=== PATIENT | female | born 2000 | race Caucasian/White ===

== ENCOUNTER 2018-04-13 12:10 | Emergency (ER) | payer OTHER, SELFPAY ==
[2018-04-13 12:11] VITALS: BP 111/59; PULSE 72; RESP 17; TEMP 36.6; O2SAT 100; BMI 23.3
--- NOTE | 2018-04-13 12:32 | CT_ITS ---
STUDY: CT ABDOMEN AND PELVIS WITHOUT CONTRAST REASON FOR EXAM: Female, 17 years old. Abdominal pain, nausea, dizziness. RADIATION DOSAGE (If Supplied By Facility): CTDIvol = ( 6.06 ) mGy, DLP = ( 260.23 ) mGycm TECHNIQUE: Transaxial images were obtained from the dome of the diaphragm to the symphysis pubis without oral contrast, and without intravenous contrast. Sagittal and coronal images were reconstructed. Individualized dose optimization techniques were used for this CT. COMPARISON: None. FINDINGS: The lungs are hyperexpanded. The visualized lung bases are clear. The visualized portions of the heart are within normal limits. Normal liver. Normal gallbladder and extrahepatic biliary system. There is borderline to mild splenomegaly, measuring 13.9 x 9.3 x 2.75 cm. Normal pancreas. Normal bilateral adrenal glands. Normal right kidney. Normal left kidney. No hydronephrosis. Normal visualized stomach. Normal small intestine. Normal colon. The appendix may be visualized on series 602 image 51, grossly appearing normal. Paucity of mesenteric fat limits evaluation of the bowel due to crowding. Normal abdominal aorta. Normal inferior vena cava. Normal retroperitoneum. Nearly empty urinary bladder. Normal visualized uterus. There is small volume fluid in the cul-de-sac. Normal abdominal wall. Incidental note of left-sided sacralization of the fifth lumbar segment and corresponding narrowing of the L5-S1 intervertebral disc height. CT/Abdomen/Pelvis without Cont IMPRESSION: 1. There is a paucity of body fat, which degrades evaluation in this noncontrast study due to crowding of similar density structures. 2. Small volume of fluid in the cul-de-sac. Grossly, the uterus and adnexa are unremarkable. 3. The bowel also is unremarkable without sign of obstruction. Possible visualization of the normal-appearing appendix. 4. No hydronephrosis. 5. Borderline to mild splenomegaly. 6. The lungs are hyperexpanded. The visualized lung bases are clear. 7. 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 Electronically Signed: Yogesh Ochoa MD at 13:42 EST , Service support ,
[2018-04-13 12:51] LABS: Red Blood Cells-Urine 0 SEEN /hpf (0-5)
[2018-04-13 12:53] LABS: Color, Urine Yellow (Yellow); Glucose, Dipstick Normal (Normal); Ketone-Dipstick Negative (Negative); Leukocyte Esterase-Dipstick 25 /ul (Negative); Nitrite-Dipstick Negative (Negative); Occult Blood-Urine Negative /ul (Negative); Protein-Dipstick 30 mg/dl (Negative); Specific Gravity, Urine 1.015 (1.002-1.030); Urine Bilirubin Dipstick Negative (Negative); Urine Clarity Sl. Cloudy (Clear); Urine Urobilinogen Normal (Normal); Urine pH 6.5 (5.0 - 8.0)
[2018-04-13 12:59] LABS: Bacteria 1+ /hpf (None Seen); Mucous, Urine 1+ /hpf (<or=2+); Squamous Epithelial Cells - UA 0-5 SEEN /hpf (5-10); White Blood Cells 0-5 SEEN /hpf (0-5)
[2018-04-13 13:00] LABS: Internal QC Validated? YES +Cl - CLEAR BKGD; Pregnancy, Urine Negative Negative
--- NOTE | 2018-04-13 14:10 | ED.VISSUMM ---
- ER Visit Summary Date of Service: 04/13/18 Chief Complaint: Abdominal pain History of Present Illness: The patient is a 17 F who presents with a near syncopal episode preceded with abdominal pain. The patient states that she was sitting at the piano playing when she began to have a suprapubic left lower quadrant abdominal pain. Pain got severe and she went to the bathroom. She had a bowel movement and urinated. Pain came back she felt very sweaty weak like she is going to pass out. Family was with her but she did not syncope. No history of ovarian cyst. She states she had a little bit of this discomfort Friday night but it was not nearly as bad. Her last menstrual period was at the beginning of February and she states that it is not abnormal for her to have a very long menstrual cycles. She states that she is back to her baseline she has no sniffing of medical problems and takes no medications. Physical Examination: Afebrile vital signs are stable Gen: Well-nourished well-developed Head: Normocephalic atraumatic Eyes: Perrl EOMI ENT: TMs clear no rhinorrhea moist mucous membranes Neck: Supple no lymphadenopathy no JVD nontender CVS: Regular rate rhythm no murmurs normal S1-S2 Respiratory: No distress clear to auscultation bilaterally chest nontender Abdomen: Soft nontender nondistended normal bowel sounds no masses Back: Nontender Extremity: Nontender no edema Skin: Normal color no rash Neuro: alert orientated ?3 CN II-XII intact normal strength sensation reflexes gait cerebellar Psych: Normal affect normal mood Test Results: Urinalysis was negative patient not . CT abdomen pelvis showed no ureterolithiasis. There seem to be a larger amount of stool in the suprapubic region which may explain why she had the pain such as a colonic spasm or prolonged peristaltic contraction. I think she most likely experienced a vasovagal episode. Patient will be discharged home with supportive care return if worsening or concerns. Impression: 1. Acute abdominal pain 2. Vasovagal near syncope This note was generated with [employer] dictation software. It may contain incorrect words, spelling, and punctuation that were not noted in review of the chart prior to signing ED Disposition - Plan for ED Patient: Disposition: Home or Assisted Living Chief Complaint: Abd Pain Instructions: ED Near Syncope Vasovagal Referrals: Amanda Gonzalez MD [Primary Care Provider] - As Needed
[2018-04-13 14:17] VITALS: PULSE 70; RESP 16
== END 2018-04-13 14:18 | disposition home or self-care (01) ==
PROVIDERS: Emergency Provider Emergency Medicine; Family Provider Family Medicine; PCP Family Medicine
DX: R10.32 Left lower quadrant pain (principal); R55 Syncope and collapse
CPT/HCPCS: 74176; 81001; 81025; 99282